=== PATIENT | female | born 1940 | race Two or more races ===

== ENCOUNTER → 2025-05-16 | Emergency (ER) | payer OTHER ==
[~2025-05-16] VITALS: Ht 154.9 cm; Wt 51.7 kg
[~2025-05-16] MED LIST: NORFLEX100MG PO; TRAMADOL HCL 50 MG TABLET PO ONE
== END | disposition home or self-care (01) ==
LOC: ER 12:20
DX: M79.601 Pain in right arm (principal); Z88.0 Allergy status to penicillin; E03.8 Other specified hypothyroidism; I10 Essential (primary) hypertension; J44.9 Chronic obstructive pulmonary disease, unspecified; Z85.118 Personal history of other malignant neoplasm of bronchus and lung